=== PATIENT | male | born 1980 | race Caucasian/White ===

== ENCOUNTER 2018-08-05 05:57 | Day surgery (SDC) | payer OTHER ==
[2018-08-05] MEDS ORDERED: FENTAnyl 50 MCG/ML VIAL (09:28)
[2018-08-05] MEDS ORDERED: MIDAZOLAM 1 MG/ML 2 ML INJ ×2 (09:28)
== END 2018-08-05 11:30 | disposition home or self-care (01) ==
LOC: GIL 05:57
DX: K29.50 Unspecified chronic gastritis without bleeding (principal); B37.81 Candidal esophagitis; K44.9 Diaphragmatic hernia without obstruction or gangrene; E11.9 Type 2 diabetes mellitus without complications
CPT/HCPCS: 43239; 88305; 88312; 88313